=== PATIENT | male | born 1980 | race Two or more races ===

== ENCOUNTER 2023-04-06 19:18 | Emergency (ER) | payer OTHER, SELFPAY ==
[2023-04-06 19:19] VITALS: BP 107/69; PULSE 78; RESP 16; TEMP 36.3; O2SAT 100
--- NOTE | 2023-04-07 01:01 | ED.EYEPROB ---
HPI - Eye Problem General Chief complaint: Eye Problems Stated complaint: left eye pain/redness Time Seen by Provider: 04/06/23 23:33 Source: patient Mode of arrival: ambulatory Limitations: no limitations History of Present Illness HPI Narrative: This is a 43-year-old male that presents to the emergency department with left eye redness. Ongoing since yesterday. Associated with abnormal discharge and discomfort. Denies fevers or visual changes. Related Data Allergies Allergy/AdvReac Type Severity Reaction Status Date / Time No Known Allergies Allergy Verified 04/06/23 22:08 Review of Systems Review of Systems: CONSTITUTIONAL: Denies fever EYES: Reports redness and discharge. Denies visual changes All systems reviewed & are unremarkable except as noted in HPI and below PMFSH Past Medical History Medical History (Updated 04/07/23 @ 01:10 by Maryam Sheehan PA-C) No active medical problems Social History Social History (Updated 04/07/23 @ 01:10 by Maryam Sheehan PA-C) Smoking status: Never smoker Exam Narrative: GENERAL: Well-appearing, well-nourished, and in no acute distress. HEAD: Normocephalic, atraumatic. EYES: PERRLA and EOMI. Left eye with conjunctival injection and yellow drainage. No foreign bodies noted. No fluorescein stain uptake. Eye pressures are 17 bilaterally ENT: Nares clear, no rhinorrhea or epistaxis. Mucous membranes moist. Oropharynx without tonsillar hypertrophy exudate or other lesions. Bilateral TMs pearly campos non-bulging NECK: Supple. No adenopathy or masses. No carotid bruits or JVD CHEST: Clear to auscultation. No respiratory distress. No wheezes rales or rhonchi HEART: Regular rate and rhythm. No murmur heard. Normal peripheral pulses. ABDOMEN: Soft, nontender, nondistended, normal active bowel sounds. EXTREMITIES: Normal range of motion. No edema. SKIN: Warm, dry, no rash. NEURO: No focal deficits. Alert and oriented x3. PSYCH: Normal mood and affect Course Course Emergency Course: Patient agrees with plan of care Vital Signs Vital signs: Vital Signs Temperature 97.4 F L 04/06/23 19:19 Pulse Rate 78 04/06/23 19:19 Respiratory Rate 16 04/06/23 19:19 Blood Pressure 107/69 04/06/23 19:19 Pulse Oximetry 100 04/06/23 19:19 Oxygen Delivery Room Air 04/06/23 19:19 Temperature 97.4 F L 04/06/23 19:19 Pulse Rate 78 04/06/23 19:19 Respiratory Rate 16 04/06/23 19:19 Blood Pressure 107/69 04/06/23 19:19 Pulse Oximetry 100 04/06/23 19:19 Oxygen Delivery Room Air 04/06/23 19:19 MDM - Eye Problem MDM Narrative Medical decision making narrative: Patient presents to the emergency department for left eye redness of with abnormal discharge. Ongoing since yesterday. Patient is afebrile and nontoxic appearing. Exam is consistent with bacterial conjunctivitis. Patient will be started on antibiotic ointment. Was instructed to follow up with Ophthalmology for any worsening symptoms. He was given warnings to return to the ER Differential Diagnosis Differential diagnosis: Likely corneal abrasion and conjunctivitis Critical Care Time Critical Care Time Critical Care Time: No Discharge Plan Discharge Clinical Impression: Bacterial conjunctivitis Patient Disposition: Home, Self-Care Condition: Stable Instructions: Antibiotic Form, Conjunctivitis (ED) Additional Instructions: Return to the ER if you experience fever, worsening redness and swelling of your eye, vision changes, or any other symptoms that are concerning to you Apply antibiotic ointment as prescribed Follow up with [facility] if needed Prescriptions: New erythromycin 5 mg/gram (0.5 %) ointment 1 applic LEFT EYE Q6H 7 Days Qty: 3.5 0RF Follow-up/Referrals: Jose Mata MD [Primary Care Provider] -
== END 2023-04-07 01:41 | disposition home or self-care (01) ==
PROVIDERS: Emergency Provider Physician Assistant; PCP Emergency Medicine
DX: H10.9 Unspecified conjunctivitis (principal)
CPT/HCPCS: 99283